=== PATIENT | male | born 1990 | race Caucasian/White ===

== ENCOUNTER 2023-03-05 17:58 | Emergency (ER) | payer OTHER ==
[~2023-03-05] VITALS: Ht 162.6 cm; Wt 68.0 kg
[2023-03-05 18:06] VITALS: BP 112/90
--- NOTE | 2023-03-05 18:08 | NUR ---
Walked into ER c/o lower gum pain x 3 days. pt denies any trauma to area. denies shortness of breath. breathing even and unlabored. awaiting MD orders.
[2023-03-05] MEDS ORDERED: PENICILLIN V POTASSIUM 500 MG TABLET PO ONE (19:00)
[2023-03-05] MEDS ORDERED: KETOROLAC TROMETHAMINE INJ 60 MG/2 ML VIAL IM ONE (19:00)
[2023-03-05] MEDS ORDERED: HYDR-3976 PO (19:02)
[2023-03-05] MEDS ORDERED: PENI500T PO (19:02)
[2023-03-05] MEDS ORDERED: KETOROLAC TROMETHAMINE INJ 30 MG/ML VIAL ONE (19:10)
[2023-03-05] MEDS ORDERED: AMOX/CLAVULANATE 875 MG TABLET ONE (19:27)
[2023-03-05] MEDS ORDERED: AMOX/CLAVULANATE 875 MG TABLET PO ONE (19:30)
== END 2023-03-05 19:34 | disposition home or self-care (01) ==
LOC: ER 18:06
DX: K04.01 Reversible pulpitis (principal); K08.89 Other specified disorders of teeth and supporting structures; Z79.899 Other long term (current) drug therapy
CPT/HCPCS: 99283; 96372; J1885

== ENCOUNTER 2023-03-08 17:14 | Emergency (ER) | payer OTHER ==
[~2023-03-08] VITALS: Ht 162.6 cm; Wt 68.0 kg
[~2023-03-08 17:14] MED LIST: HYDR-3976 PO; PENI500T PO
--- NOTE | 2023-03-08 17:40 | NUR ---
C/O LEFT JAW PAIN AND SWELLING SINCE 03/03. DENIES TRAUMA NO AIRWAY OBSTRUCTION.
--- NOTE | 2023-03-08 17:41 | NUR ---
AT BED SIDE FOR EVAL
[2023-03-08 17:45] VITALS: BP 133/87
== END 2023-03-08 17:46 | disposition home or self-care (01) ==
LOC: ER 17:18
DX: K08.89 Other specified disorders of teeth and supporting structures (principal); E10.9 Type 1 diabetes mellitus without complications; Z79.899 Other long term (current) drug therapy